=== PATIENT | male | born 1955 | race Caucasian/White ===

== ENCOUNTER 2023-04-06 10:14 | Emergency (ER) | payer MEDICARE, BC ==
[2023-04-06] MEDS ORDERED: Acetaminophen 500 MG Tab PO ONE (12:42)
[2023-04-06] MEDS ORDERED: Ibuprofen 600 MG Tab PO ONE (12:42)
== END 2023-04-06 13:01 ==
LOC: DL.ED 10:14
DX: S72.001A Fracture of unspecified part of neck of right femur, initial encounter for closed fracture (principal); Z86.16 Personal history of COVID-19; W01.0XXA Fall on same level from slipping, tripping and stumbling without subsequent striking against object, initial encounter
CPT/HCPCS: 73700-RT; 99284; 99285; A9270-GY

== ENCOUNTER 2024-11-26 08:55 | Emergency (ER) | payer MEDICARE, BC | END 2024-11-26 11:00 | disposition home or self-care (01) | LOC: DL.ED 08:55 | DX: S22.31XA Fracture of one rib, right side, initial encounter for closed fracture (principal); W01.0XXA Fall on same level from slipping, tripping and stumbling without subsequent striking against object, initial encounter | CPT/HCPCS: 71046; 99283; 99284; A9270 ==